=== PATIENT | female | born 1960 | race Caucasian/White ===

== ENCOUNTER → 2017-10-03 | Outpatient (CLI) | payer OTHER ==
[2017-10-03 07:38] LABS: WHITE BLOOD COUNT 3.9 x10^3/uL (3.4-10)
[2017-10-03 07:51] LABS: ASPARTATE AMINO TRANSFERASE 13 U/L (15-37); BLOOD UREA NITROGEN 15 mg/dL (7-18)
[2017-10-05 20:08] LABS: TESTOSTERONE FREE DIRECT 4.1 pg/mL (0.0-4.2)
== END | disposition home or self-care (01) ==
LOC: CFH 07:24
PROVIDERS: ATTEND Obstetrics & Gynecology
DX: Z12.31 Encounter for screening mammogram for malignant neoplasm of breast (principal); Z13.220 Encounter for screening for lipoid disorders; Z13.228 Encounter for screening for other metabolic disorders; N92.0 Excessive and frequent menstruation with regular cycle; E34.9 Endocrine disorder, unspecified; E03.9 Hypothyroidism, unspecified; E55.9 Vitamin D deficiency, unspecified; R73.09 Other abnormal glucose; Z80.3 Family history of malignant neoplasm of breast; Z85.41 Personal history of malignant neoplasm of cervix uteri
CPT/HCPCS: 36415; 80053; 80061; 82306; 82670; 83001; 84402; 84403; 84439; 84443; 85025; G0202

== ENCOUNTER 2018-12-12 11:09 | Day surgery (SDC) | payer OTHER ==
[~2018-12-12 11:09] MED LIST: xanax PO
[2018-12-12] MEDS ORDERED: ACETAMINOPHEN 500 MG TABLET ONE (12:39)
[2018-12-12] MEDS ORDERED: SCOPOLAMINE PATCH, 1.5MG PATCH.TD72 TD ONE ×2 (12:39→13:00)
[2018-12-12] MEDS ORDERED: DIAZEPAM 5 MG TABLET ONE (12:40)
[2018-12-12] MEDS ORDERED: MIDAZOLAM 1 MG/ML, 2ML ONE (12:49)
[2018-12-12] MEDS ORDERED: FENTANYL PF 250 MCG/5ML ONE (12:50)
[2018-12-12] MEDS ORDERED: DIAZEPAM 5 MG TABLET PO ONE (13:00)
[2018-12-12] MEDS ORDERED: ACETAMINOPHEN 500 MG TABLET PO ONE (13:00)
[2018-12-12] MEDS ORDERED: DEXAMETHASONE 4 MG/ML, 1ML ONE (13:10)
[2018-12-12] MEDS ORDERED: PROPOFOL 10 MG/ML, 20ML ONE (13:37)
[2018-12-12] MEDS ORDERED: CEFAZOLIN 1,000 MG ONE (13:37)
[2018-12-12] MEDS ORDERED: ONDANSETRON 2MG/ML, 2ML ONE (13:37)
[2018-12-12] MEDS ORDERED: FENTANYL PF 100 MCG/2ML ONE (13:53)
[2018-12-12] MEDS ORDERED: HYDROmorphone 2 MG/ML, 1ML ONE (13:53)
[2018-12-12] MEDS ORDERED: OXYcodone 5 MG/5 ML ORAL.SOL UDC ONE ×2 (13:54→15:31)
[2018-12-12] MEDS ORDERED: MEPERIDINE/PF 25MG/0.5ML IVPush PRN (14:00)
[2018-12-12] MEDS ORDERED: METOPROLOL 1 MG/ML, 5ML IV PRN (14:00)
[2018-12-12] MEDS ORDERED: DIPHENHYDRAMINE 50 MG/ML, 1ML IVPush PRN (14:00)
[2018-12-12] MEDS ORDERED: LABETALOL 5MG/ML, 20ML IV PRN (14:00)
[2018-12-12] MEDS ORDERED: hydrALAzine 20 MG/ML, 1ML IV PRN (14:00)
[2018-12-12] MEDS ORDERED: HYDROmorphone 2 MG/ML, 1ML IVPush PRN (14:00)
[2018-12-12] MEDS: FENTANYL PF 100 MCG/2ML IV PRN ×3 (14:00→14:13)
[2018-12-12] MEDS ORDERED: PROCHLORPERAZINE 5 MG/ML, 2ML IV PRN (14:00)
[2018-12-12] MEDS ORDERED: HALOPERIDOL 5 MG/ML IV PRN (14:00)
[2018-12-12] MEDS ORDERED: PROMETHAZINE 25 MG/ML, 1ML IV PRN (14:00)
[2018-12-12] MEDS ORDERED: OXYcodone 5 MG/5 ML ORAL.SOL UDC PO PRN (14:00)
[2018-12-12] MEDS ORDERED: PLEASE ENTER HEIGHT AND WEIGHT MC SCH (14:30)
[2018-12-12] MEDS ORDERED: KETOROLAC 30 MG/1 ML IVPush ONE (15:30)
[2018-12-12] MEDS ORDERED: OXYcodone 5 MG/5 ML ORAL.SOL UDC PO ONE (15:30)
[2018-12-12] MEDS ORDERED: KETOROLAC 30 MG/1 ML ONE (15:32)
== END 2018-12-12 16:05 | disposition home or self-care (01) ==
LOC: OUT 11:09
PROVIDERS: ATTEND Orthopaedic Surgery
DX: S82.092A Other fracture of left patella, initial encounter for closed fracture (principal); W19.XXXA Unspecified fall, initial encounter; Y93.89 Activity, other specified; Y92.89 Other specified places as the place of occurrence of the external cause; Y99.8 Other external cause status
CPT/HCPCS: 27524; 73560; 76000; C1713; J0690; J1100; J1885; J2250; J2405; J2704; J3010

== ENCOUNTER 2019-03-08 05:23 | Day surgery (SDC) | payer OTHER ==
[~2019-03-08] VITALS: Ht 175.3 cm; Wt 91.1 kg
[2019-03-08] MEDS ORDERED: LACTATED RINGERS 1,000 ML IV SCH (05:59)
[2019-03-08 06:22] VITALS: BP 123/76
[2019-03-08] MEDS ORDERED: BUPIVACAINE/PF 0.5% ONE (06:34)
[2019-03-08] MEDS ORDERED: DEXAMETHASONE 4 MG/ML, 5ML ONE (06:35)
[2019-03-08] MEDS ORDERED: PROPOFOL 10 MG/ML, 20ML ONE (06:38)
[2019-03-08] MEDS ORDERED: MIDAZOLAM 1 MG/ML, 2ML ONE (06:39)
[2019-03-08] MEDS ORDERED: FENTANYL PF 100 MCG/2ML ONE (06:39)
[2019-03-08] MEDS ORDERED: ONDANSETRON 2MG/ML, 2ML ONE (06:58)
[2019-03-08] MEDS ORDERED: PROMETHAZINE 25 MG/ML, 1ML IV PRN (07:00)
[2019-03-08] MEDS ORDERED: MEPERIDINE/PF 25MG/0.5ML IVPush PRN (07:00)
[2019-03-08] MEDS ORDERED: LORazepam 2 MG/ML, 1ML IVPush PRN (07:00)
[2019-03-08] MEDS ORDERED: ONDANSETRON 2MG/ML, 2ML IV PRN (07:00)
[2019-03-08] MEDS ORDERED: HYDROmorphone 2 MG/ML, 1ML IVPush PRN (07:00)
[2019-03-08] MEDS ORDERED: FENTANYL PF 100 MCG/2ML IV PRN (07:00)
[2019-03-08] MEDS ORDERED: KETOROLAC 30 MG/1 ML IV PRN (07:00)
[2019-03-08] MEDS ORDERED: OXYcodone 5 MG/5 ML ORAL.SOL UDC PO PRN (07:00)
[2019-03-08] MEDS ORDERED: ACETAMINOPHEN 325 MG TABLET PO PRN (07:00)
== END 2019-03-08 09:45 | disposition home or self-care (01) ==
LOC: OUT 05:23
PROVIDERS: ATTEND Orthopaedic Surgery
DX: M24.662 Ankylosis, left knee (principal); Z79.899 Other long term (current) drug therapy; Z98.890 Other specified postprocedural states
CPT/HCPCS: 27570; J1100; J2250; J2405; J2704; J3010; J7120